=== PATIENT | female | born 1960 | race Caucasian/White ===

== ENCOUNTER 2017-11-18 17:20 | Inpatient (IN) ==
--- NOTE | 2017-11-18 17:35 | Emergency Department Note ---
Disposition Clinical Impression: Depression Qualifiers: Depression Type: unspecified Qualified Code(s): F32.9 - Major depressive disorder, single episode, unspecified Disposition: Admitted As Inpatient Condition: Fair Referrals: Gabe Mcdonald MD [Non-Partnered Physician] - Forms: ED Satisfaction Letter Time of Disposition: 21:38 Psych HPI - General Chief Complaint: ED Psychiatric Symptoms Stated Complaint: SI & depression Time Seen by Provider: 11/18/17 17:27 Source: patient Mode of arrival: ambulatory Limitations: no limitations Nursing Notes Reviewed: Yes Vital Signs Reviewed: Yes - History of Present Illness HPI Narrative: 57-year-old with history of depression who was seen outside facility pink slipped here to depression with suicidal ideation. Patient states she would take her pills and overdose. Patient also complains of diarrhea she states she had antibiotics for sinus infections concerned she may have C. difficile. 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 Constitutional: Denies: fever, chills, weakness, weight change Eyes: Denies: eye pain, eye discharge, vision change ENT ED: Denies: ear pain, throat pain, dental pain, hearing loss, epistaxis, congestion, dysphagia Cardiovascular: Denies: chest pain, palpitations, dyspnea on exertion, edema, syncope Respiratory: Denies: cough, dyspnea, wheezes, hemoptysis, stridor Gastrointestinal: Reports: diarrhea. Denies: abdominal pain, nausea, vomiting, constipation, hematemesis, melena, hematochezia Genitourinary: Denies: dysuria, frequency, hematuria, discharge Musculoskeletal: Denies: back pain, neck pain, arthralgia, myalgia Integumentary: Denies: rash, abrasion, lesions Neurological: Denies: headache, weakness, numbness, paresthesias, confusion, abnormal gait, vertigo Psychiatric: Reports: depression, suicidal thoughts. Denies: anxiety, homicidal thoughts, auditory hallucinations, visual hallucinations Endocrine: Denies: fatigue Hematological/Lymphatic: Denies: easy bleeding, easy bruising Allergic/Immunologic: Denies: facial swelling, urticaria Physical Exam - General Limitations: no limitations General appearance: alert, in no apparent distress - Head Head exam: atraumatic, normocephalic, normal inspection - Eye Eye exam: Present: normal appearance, PERRL, EOMI - ENT ENT exam: normal exam, normal oropharynx, mucous membranes moist - Neck Neck exam: Present: normal inspection, full ROM, trachea midline - Chest Chest inspection: Present: normal inspection, symmetric chest wall rise - Respiratory Respiratory exam: Present: normal lung sounds bilaterally - Cardiovascular Cardiovascular exam: Present: regular rate, normal rhythm, normal heart sounds - Abdominal Exam Abdominal exam: Present: soft, Non-Tender. Absent: tenderness, distention, guarding, rebound, rigidity - Extremities Exam Extremities exam: Present: normal inspection, full ROM. Absent: tenderness, pedal edema - Expanded Lower Extremity Exam Neurovascular/Tendon exam: Absent: motor deficit, sensory deficit, tendon deficit Gait: observed and normal - Back Exam Back exam: Present: normal inspection, full ROM. Absent: tenderness - Neurological Exam Neurological exam: Present: alert, oriented X3 - Psychiatric Psychiatric exam: Present: depressed, suicidal ideation - Skin Skin exam: Present: warm, dry, intact, normal color Course - Reevaluation(s) Reevaluation #1: 57-year-old comes in with depression suicidal ideation. Patient will be admitted to [facility]. We initially ordered a C. difficile for diarrhea however the patient's had no diarrhea here and her symptoms seem to be improving she did take Zithromax of 5 doses and developed some crampy pain after starting that this point in time it does not appear that she has C. difficile we will go ahead and did clear her for admission certainly if her symptoms persist a stool to be sent for C. difficile Time: 21:37 Vital Signs Temperature 98.4 F 11/18/17 17:25 Pulse Rate 111 11/18/17 17:25 Respiratory Rate 20 11/18/17 17:25 Blood Pressure 126/79 11/18/17 17:25 O2 Sat by Pulse Oximetry 100 11/18/17 17:25 Temperature 98.4 F 11/18/17 17:25 Pulse Rate 111 11/18/17 17:25 Respiratory Rate 20 11/18/17 17:25 Blood Pressure 126/79 11/18/17 17:25 O2 Sat by Pulse Oximetry 100 11/18/17 17:25 Oxygen Delivery Oxygen Delivery Room Air Psych - Lab Data Result diagrams: 11/18/17 17:58 11/18/17 17:58 Lab Results 11/18/17 11/18/17 11/18/17 Range/Units 17:25 17:25 17:58 WBC 12.3 H (4.3-11.1) K/mcL RBC 5.61 H (3.82-4.97) M/mcL Hgb 15.6 H (11.5-15.4) g/dL Hct 45.6 H (35.3-44.9) % MCV 81.3 L (83.0-100.0) fL MCH 27.8 L (28.0-33.3) pg MCHC 34.2 (31.6-35.5) g/dL RDW 13.4 (11.5-14.5) % Plt Count 280 (140-400) K/mcL MPV 10.6 (9.4-12.4) fL Immature Gran % 0.6 (0-4) % Seg Neutrophils % 72.3 % Lymphocytes % 18.9 % Monocytes % 5.7 % Eosinophils % 2.1 % Basophils % 0.4 % Neutrophils # 8.9 (1.6-8.9) K/mcL Lymphocytes # 2.3 (0.6-4.6) K/mcL Monocytes # 0.7 (0.0-1.3) K/mcL Eosinophils # 0.3 (0.0-0.6) K/mcL Basophils # 0.1 (0.0-0.2) K/mcL Sodium (136-145) mEq/L Potassium (3.5-5.1) mEq/L Chloride (98-107) mEq/L Carbon Dioxide (23-29) mEq/L BUN (6-20) mg/dL Creatinine (0.60-1.20) mg/dL Est GFR ( Amer) (> 60) Est GFR (Non-Af Amer) (> 60) BUN/Creatinine Ratio (6-26) Glucose (70-105) mg/dL Calculated Osmolality (280-300) Calcium (8.6-10.3) mg/dL Urine Color Yellow (Yellow) Urine Clarity Cloudy A (Clear) Urine pH 5.5 (5.0-8.0) pH Units Ur Specific [place] 1.019 (1.010-1.025) Urine Protein Trace (Neg-Trace) mg/dL Urine Glucose (UA) Normal (Normal) mg/dL Urine Ketones Negative (Negative) mg/dL Urine Blood Trace H (Negative) Urine Nitrite Positive A (Negative) Urine Bilirubin Negative (Negative) Urine Urobilinogen Normal (Normal) mg/dL Ur Leukocyte Esterase Moderate H (Negative) Urine Microscopic RBC 0-3 (0-3) per hpf Urine Microscopic WBC 30-50 H (0-3) per hpf Ur Squamous Epith Cells Moderate H (None-Few) per lpf Urine Bacteria Many H (None-Few) per hpf Hyaline Casts None Seen (None-Few) per lpf Salicylates (15.0-30.0) mg/dL Urine Opiates Screen Negative (Sivyyh=281) ng/mL Acetaminophen (10-20) mcg/mL Ur Barbiturates Screen Negative (Tyhrkd=025) ng/mL Ur Phencyclidine Scrn Negative (Cutoff=25) ng/mL Ur Amphetamines Screen Negative (Gfueka=9478) ng/mL U Benzodiazepines Scrn Negative (Nckyzn=148) ng/mL Urine Cocaine Screen Negative (Cutoff= 300) ng/mL U Marijuana (THC) Screen Negative (Cutoff = 50) ng/mL Ethyl Alcohol (Less than 10) mg/dL 11/18/17 Range/Units 17:58 WBC (4.3-11.1) K/mcL RBC (3.82-4.97) M/mcL Hgb (11.5-15.4) g/dL Hct (35.3-44.9) % MCV (83.0-100.0) fL MCH (28.0-33.3) pg MCHC (31.6-35.5) g/dL RDW (11.5-14.5) % Plt Count (140-400) K/mcL MPV (9.4-12.4) fL Immature Gran % (0-4) % Seg Neutrophils % % Lymphocytes % % Monocytes % % Eosinophils % % Basophils % % Neutrophils # (1.6-8.9) K/mcL Lymphocytes # (0.6-4.6) K/mcL Monocytes # (0.0-1.3) K/mcL Eosinophils # (0.0-0.6) K/mcL Basophils # (0.0-0.2) K/mcL Sodium 136 (136-145) mEq/L Potassium 3.8 (3.5-5.1) mEq/L Chloride 101 (98-107) mEq/L Carbon Dioxide 25 (23-29) mEq/L BUN 9 (6-20) mg/dL Creatinine 0.66 (0.60-1.20) mg/dL Est GFR ( Amer) > 60 (> 60) Est GFR (Non-Af Amer) > 60 (> 60) BUN/Creatinine Ratio 14 (6-26) Glucose 182 H (70-105) mg/dL Calculated Osmolality 285 (280-300) Calcium 9.6 (8.6-10.3) mg/dL Urine Color (Yellow) Urine Clarity (Clear) Urine pH (5.0-8.0) pH Units Ur Specific [place] (1.010-1.025) Urine Protein (Neg-Trace) mg/dL Urine Glucose (UA) (Normal) mg/dL Urine Ketones (Negative) mg/dL Urine Blood (Negative) Urine Nitrite (Negative) Urine Bilirubin (Negative) Urine Urobilinogen (Normal) mg/dL Ur Leukocyte Esterase (Negative) Urine Microscopic RBC (0-3) per hpf Urine Microscopic WBC (0-3) per hpf Ur Squamous Epith Cells (None-Few) per lpf Urine Bacteria (None-Few) per hpf Hyaline Casts (None-Few) per lpf Salicylates < 2.5 L (15.0-30.0) mg/dL Urine Opiates Screen (Uzlytn=480) ng/mL Acetaminophen < 10 L (10-20) mcg/mL Ur Barbiturates Screen (Cqjpsr=613) ng/mL Ur Phencyclidine Scrn (Cutoff=25) ng/mL Ur Amphetamines Screen (Gpeafq=1829) ng/mL U Benzodiazepines Scrn (Rufiwd=303) ng/mL Urine Cocaine Screen (Cutoff= 300) ng/mL U Marijuana (THC) Screen (Cutoff = 50) ng/mL Ethyl Alcohol < 10 (Less than 10) mg/dL Psychiatric Medical Clearance - Medical Clearance Checklist Medical History: No Social History Section defined Current Vitals: Last Vital Signs Temp 98.4 F 11/18/17 17:25 Pulse 111 11/18/17 17:25 Resp 20 11/18/17 17:25 BP 126/79 11/18/17 17:25 Pulse Ox 100 11/18/17 17:25 Psychiatric Lab Panel: Drug Levels and Toxicity 11/18/17 11/18/17 17:25 17:58 Urine Opiates Screen Negative Acetaminophen < 10 L Ur Barbiturates Screen Negative Ur Phencyclidine Scrn Negative Ur Amphetamines Screen Negative U Benzodiazepines Scrn Negative Urine Cocaine Screen Negative U Marijuana (THC) Screen Negative Ethyl Alcohol < 10 Abnormal Labs: Abnormal lab results WBC 12.3 K/mcL (4.3-11.1) H 11/18/17 17:58 RBC 5.61 M/mcL (3.82-4.97) H 11/18/17 17:58 Hgb 15.6 g/dL (11.5-15.4) H 11/18/17 17:58 Hct 45.6 % (35.3-44.9) H 11/18/17 17:58 MCV 81.3 fL (83.0-100.0) L 11/18/17 17:58 MCH 27.8 pg (28.0-33.3) L 11/18/17 17:58 Glucose 182 mg/dL (70-105) H 11/18/17 17:58 Urine Clarity Cloudy (Clear) A 11/18/17 17:25 Urine Blood Trace (Negative) H 11/18/17 17:25 Urine Nitrite Positive (Negative) A 11/18/17 17:25 Ur Leukocyte Esterase Moderate (Negative) H 11/18/17 17:25 Urine Microscopic WBC 30-50 per hpf (0-3) H 11/18/17 17:25 Ur Squamous Epith Cells Moderate per lpf (None-Few) H 11/18/17 17:25 Urine Bacteria Many per hpf (None-Few) H 11/18/17 17:25 Salicylates < 2.5 mg/dL (15.0-30.0) L 11/18/17 17:58 Acetaminophen < 10 mcg/mL (10-20) L 11/18/17 17:58 Statement of Medical Clearance: I have evaluated the patient, reviewed diagnostic information, and certify that the patient's medical condition is sufficiently stable that transfer to the psychiatric unit does not pose a significant risk of deterioration.
[2017-11-18 18:19] LABS: Basophils # 0.1 K/mcL (0.0-0.2); Basophils % 0.4 %; Eosinophils # 0.3 K/mcL (0.0-0.6); Eosinophils % 2.1 %; Hematocrit 45.6 % (35.3-44.9); Hemoglobin 15.6 g/dL (11.5-15.4); Immature Granulocytes % 0.6 % (0-4); Lymphocytes # 2.3 K/mcL (0.6-4.6); Lymphocytes % 18.9 %; Mean Corpuscular HGB Conc 34.2 g/dL (31.6-35.5); Mean Corpuscular Hemoglobin 27.8 pg (28.0-33.3); Mean Corpuscular Volume 81.3 fL (83.0-100.0); Mean Platelet Volume 10.6 fL (9.4-12.4); Monocytes # 0.7 K/mcL (0.0-1.3); Monocytes % 5.7 %; Neutrophils # 8.9 K/mcL (1.6-8.9); Platelet Count 280 K/mcL (140-400); Red Blood Count 5.61 M/mcL (3.82-4.97); Red Cell Distribution Width 13.4 % (11.5-14.5); Segmented Neutrophils % 72.3 %
[2017-11-18 18:38] LABS: Acetaminophen < 10 mcg/mL (10-20); BUN/Creatinine Ratio 14 (6-26); Blood Urea Nitrogen 9 mg/dL (6-20); Calcium 9.6 mg/dL (8.6-10.3); Carbon Dioxide 25 mEq/L (23-29); Chloride 101 mEq/L (98-107); Ethanol < 10 mg/dL (Less than 10); Glucose 182 mg/dL (70-105); Osmolality,Calculated 285 (280-300); Potassium 3.8 mEq/L (3.5-5.1); Salicylate < 2.5 mg/dL (15.0-30.0); Sodium 136 mEq/L (136-145); eGFR For African Americans > 60 (> 60); eGFR For Non-African Americans > 60 (> 60)
[2017-11-18 18:39] LABS: Bilirubin,Urine Negative (Negative); Blood,Urine Trace (Negative); Clarity,Urine Cloudy (Clear); Color,Urine Yellow (Yellow); Glucose,Urine (UA) Normal (Normal); Ketones,Urine Negative (Negative); Leukocyte Esterase,Urine Moderate (Negative); Nitrite,Urine Positive (Negative); PH,Urine 5.5 pH Units (5.0-8.0); Protein,Urine Trace mg/dL (Neg-Trace); Specific Gravity,Urine 1.019 (1.010-1.025); Urobilinogen,Urine Normal (Normal)
[2017-11-18 18:43] LABS: Bacteria,Urine Many per hpf (None-Few); Hyaline Casts,Urine None Seen per lpf (None-Few); RBC,Urine 0-3 per hpf (0-3); Squamous Epithelial Cell,Urine Moderate per lpf (None-Few); WBC,Urine 30-50 per hpf (0-3)
[2017-11-18 18:46] LABS: Amphetamine Screen,Urine Negative ng/mL (Cutoff=1000); Barbiturate Screen,Urine Negative ng/mL (Cutoff=200); Benzodiazepines Screen,Urine Negative ng/mL (Cutoff=200); Cannabinoid Screen,Urine Negative ng/mL (Cutoff = 50); Cocaine Screen,Urine Negative ng/mL (Cutoff= 300); Opiate Screen,Urine Negative ng/mL (Cutoff=300); Phencyclidine Screen,Urine Negative ng/mL (Cutoff=25)
[2017-11-18] MEDS ORDERED: Haloperidol Lactate 5 MG/ML VIAL IM PRN (23:31)
[2017-11-18] MEDS ORDERED: Acetaminophen 325 MG TABLET PO PRN (23:31)
[2017-11-18] MEDS ORDERED: MOM Conc 10 ML UD.LIQ PO PRN (23:31)
[2017-11-18] MEDS ORDERED: *HR* LORazepam 2 MG/ML VIAL IM PRN (23:31)
[2017-11-18] MEDS ORDERED: *HR* LORazepam 1 MG TABLET PO PRN (23:31)
[2017-11-18] MEDS ORDERED: traZODone 50 MG TABLET PO PRN (23:31)
[2017-11-18] MEDS ORDERED: Mag Hydrox/Al Hydrox/Simeth 30 ML UDC PO PRN (23:31)
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
[2017-11-19] MEDS: Insulin DETEMIR 100 UNIT/ML X5UNITS SQ SCH ×2 (13:40→21:37)
[2017-11-19] MEDS: Aspirin 81 MG TAB.CHEW PO SCH (14:09)
[2017-11-19] MEDS: hydrOXYzine pamoate 25 MG CAPSULE PO PRN (21:34)
[2017-11-20] MEDS: Insulin DETEMIR 100 UNIT/ML X5UNITS SQ SCH ×2 (09:15→20:53)
[2017-11-20] MEDS: Aspirin 81 MG TAB.CHEW PO SCH (09:27)
--- NOTE | 2017-11-20 11:43 | Psychiatry Progress Note ---
Date of Encounter: 11/20/17 Time of Encounter: 11:10 Subjective Interval history: Patient seen for follow-up. Case discussed with nursing staff. She endorse suicidal ideation on and off, report sleep improved. She is cooperative and compliant with medication, her blood sugar is well controlled. She participated in some activities. I discussed with her that her family stressors need to be addressed and sorted out when she meets with social group worker. Review of Systems Psychiatric: Reports: depression, anxiety, suicidal ideation Results - Vital Signs Vital Signs: Temp Pulse Resp BP Pulse Ox 98.4 F 88 16 105/63 100 11/20/17 09:00 11/20/17 09:00 11/20/17 09:00 11/20/17 09:00 11/18/17 17:25 - Labs Labs: Laboratory Results - last 24 hr 11/19/17 11/19/17 11/20/17 11:50 16:41 08:38 POC Glucose 193 H 159 H 115 H 11/20/17 11:29 POC Glucose 162 H Assessment and Plan (1) Depression Current visit: Yes Status: Acute Plan: Continue hospitalization, Close observation, Suicide Precautions per unit protocol, Encourage participation in unit milieu, Group Therapy, Monitor sleep, Monitor appetite Risks, benefits, side effects, alternatives discussed w/pt: Yes Patient agreeable to treatment: Yes Qualifiers: Depression Type: unspecified Qualified Code(s): F32.9 - Major depressive disorder, single episode, unspecified Consult Discharge Plan - Plan Referrals: NONE,PCP [Primary Care Provider] - Psychiatry Exam - Constitutional Vitals: Temp Pulse Resp BP Pulse Ox 98.4 F 88 16 105/63 100 11/20/17 09:00 11/20/17 09:00 11/20/17 09:00 11/20/17 09:00 11/18/17 17:25 General appearance: age & developmentally appropriate, well-groomed, well- nourished, obese - Musculoskeletal Gait: normal Station: relaxed Strength & Tone: normal for patient - Psychiatric Patient Orientation: Yes Person, Yes Time, Yes Place Level of alertness: Alert Behavior: calm, cooperative Psychomotor activity: Normal Eye Contact: Maintains Eye Contact Mood Description: Euthymic/stable, Depressed Affect description: congruent with mood, constricted Speech Volume: Normal Speech pattern: normal rate, normal rhythm, normal tone, fluent, spontaneous Language & Vocabulary: consistent with education Thought Process: Linear, Goal Oriented Thought Content: No Suicidal ideation, No Homicidal ideation, No Overt delusions Perceptual Disturbances: No Auditory hallucinations, No Visual hallucinations Attention Span Ability: Capable of Focused Attention Memory Description: Grossly Intact Patient Reliability: Reliable Historian Fund of knowledge: Yes abstraction ability, Yes aware of current events Intelligence Estimate: Average Judgment: Limited Insight: Partial
[2017-11-21] MEDS: Aspirin 81 MG TAB.CHEW PO SCH (08:28)
[2017-11-21] MEDS: Insulin DETEMIR 100 UNIT/ML X5UNITS SQ SCH ×2 (08:28→20:53)
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
[2017-11-22] MEDS: Aspirin 81 MG TAB.CHEW PO SCH (08:55)
[2017-11-22] MEDS: Insulin DETEMIR 100 UNIT/ML X5UNITS SQ SCH ×2 (08:56→20:35)
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
[2017-11-22] MEDS: hydrOXYzine pamoate 25 MG CAPSULE PO PRN ×2 (16:59→20:20)
[2017-11-23] MEDS: Aspirin 81 MG TAB.CHEW PO SCH (08:13)
[2017-11-23] MEDS: Insulin DETEMIR 100 UNIT/ML X5UNITS SQ SCH ×2 (08:13→20:34)
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
[2017-11-23] MEDS: hydrOXYzine pamoate 25 MG CAPSULE PO PRN (20:33)
--- NOTE | 2017-11-24 09:41 | Discharge Summary ---
Date of Encounter: 11/24/17 Time of Encounter: 09:35 Diagnosis - Discharge Diagnosis (1) Depression Status: Acute Qualifiers: Depression Type: unspecified Qualified Code(s): F32.9 - Major depressive disorder, single episode, unspecified Medications - Discharge Medications Prescriptions: Citalopram [CeleXA] 20 mg PO DAILY 30 Days #30 tablet hydrOXYzine pamoate [HydrOXYzine Pamoate] 25 mg PO TID PRN 30 Days #60 capsule PRN Reason: Anxiety Aspirin [Lo-Dose Aspirin EC] 81 mg PO DAILY 11/18/17 [History] Insulin Glargine,Hum.rec.anlog [Lantus Solostar] 55 unit SQ QAM 11/18/17 [ History] Insulin Glargine,Hum.rec.anlog [Lantus Solostar] 60 unit SQ QPM 11/18/17 [ History] traZODone [TraZODone] 50 mg PO HS 11/18/17 [History] Citalopram [CeleXA] 20 mg PO DAILY 30 Days #30 tablet 11/24/17 [Rx] Insulin DETEMIR [Levemir] 55 unit SQ QAM [id number] 11/24/17 [Rx] Insulin DETEMIR [Levemir] 60 unit SQ HS [id number] 11/24/17 [Rx] hydrOXYzine pamoate [HydrOXYzine Pamoate] 25 mg PO TID PRN 30 Days #60 capsule 11/24/17 [Rx] 3 Allergy/AdvReac Type Severity Reaction Status Date / Time Penicillins Allergy Hives Verified 11/18/17 18:47 Provider Date of admission: 11/18/17 23:25 Primary care physician: PCP NONE Psychiatry Exam - Constitutional Vitals: Temp Pulse Resp BP Pulse Ox 98.2 F 71 18 141/59 100 11/23/17 19:53 11/23/17 19:53 11/23/17 19:53 11/23/17 19:53 11/18/17 17:25 General appearance: obese - Musculoskeletal Gait: normal Station: relaxed Strength & Tone: normal for patient - Psychiatric Patient Orientation: Yes Person, Yes Time, Yes Place, Yes Circumstance Level of alertness: Alert Behavior: calm Psychomotor activity: Normal Eye Contact: Maintains Eye Contact Mood Description: Euthymic/stable Affect description: congruent with mood Speech Volume: Normal Speech pattern: normal rate, normal rhythm, normal tone Language & Vocabulary: consistent with education Thought Process: Intact, Linear, Goal Oriented Thought Content: Yes Intact Attention Span Ability: Capable of Focused Attention, Capable of Sustained Attention Memory Description: Grossly Intact Patient Reliability: Reliable Historian Fund of knowledge: Yes abstraction ability Intelligence Estimate: Average Judgment: Good Insight: Partial Hospital Course Hospital course: Ms. Richards is a 57 year old female Does patient wish to continue nicotine replacement upon disc: No (Non smoker) - Time Spent with Patient Total time spent providing and/or coordinating discharge services: 15 min Less than 30 minutes Assessment and Plan - Patient/Caregiver Discharge Instructions Activity: resume usual activities as tolerated Diet: diabetic diet (Issues like is mainly) Additional Instructions: [facility], Maria Luz, with concerns or needs on discharge. Maria Luz can be reached at [phone]. - Follow up Plan Follow up with: Larisa Suarez [Outside] - 12/08/17 2:00 pm (The above appointment is with Jessika Salas for outpatient mental health counselling. Please bring the [facility] intake packet that you received at the hospital,photo ID , insurance card and proof of income to your appointment. If you need to cancel/ reschedule, please call at least 24 hours in advance. The above appointment reflects first availability. You may contact the office regularly to check for cancellation that may allow you to be seen sooner. You may also walk into the clinic any time during regular business hours to be seen on crisis.) Gabe Mcdonald MD [Non-Partnered Physician] - 12/02/17 3:30 pm (The above appointment with Dr. Mcdonald is for primary care.) Functional capacity at discharge: independent ambulation Overall status at discharge: Stable Disposition: Home, Self-Care Quality - Multiple Antipsychotics Patient discharged on 2 or more antipsychotic medications: No Procedures - Procedures Procedures: Medication Management, Crisis Stabilization, Supportive Therapy, Group Therapy, Psychoeducational Therapy
[2017-11-24 09:43] VITALS: BP 123/69
[2017-11-24] MEDS: Aspirin 81 MG TAB.CHEW PO SCH (09:51)
[2017-11-24] MEDS: Insulin DETEMIR 100 UNIT/ML X5UNITS SQ SCH (10:40)
== END 2017-11-24 10:55 | disposition home or self-care (01) | DRG 754 ==
LOC: EMEROO 17:20 → 1ANU 23:25 → SUATTDRO 23:25 → 1ANU 11-19 00:15
PROVIDERS: ADMIT Psychiatry & Neurology Psychiatry; ATTEND Psychiatry & Neurology Psychiatry